=== PATIENT | female | born 1965 | race Caucasian/White ===

== ENCOUNTER 2019-02-17 22:21 | Emergency (ER) | payer MEDICAID ==
[~2019-02-17] VITALS: Ht 154.9 cm; Wt 56.7 kg
[2019-02-17 22:23] VITALS: BP 144/80
--- NOTE | 2019-02-17 22:41 | NUR ---
Patient ambulated back with friend. Orders placed by provider. Awaiting imaging.
[2019-02-17] MEDS ORDERED: ACETAMINOPHEN 500 MG TABLET ONE (22:49)
[2019-02-17] MEDS ORDERED: KETOROLAC 30 MG/1 ML ONE (22:49)
[2019-02-17] MEDS ORDERED: ACETAMINOPHEN 500 MG TABLET PO ONE (23:00)
[2019-02-17] MEDS ORDERED: KETOROLAC 30 MG/1 ML IM ONE (23:00)
== END 2019-02-18 00:51 | disposition home or self-care (01) ==
LOC: ED 22:47
DX: M79.644 Pain in right finger(s) (principal); M79.645 Pain in left finger(s); F17.200 Nicotine dependence, unspecified, uncomplicated
CPT/HCPCS: 73140; 96372; 99283; J1885; J7512